=== PATIENT | male | born 1970 | race Caucasian/White ===

== ENCOUNTER 2020-11-26 10:12 | Emergency (ER) | payer OTHER ==
[~2020-11-26] VITALS: Ht 170.2 cm; Wt 83.9 kg
[~2020-11-26 10:12] MED LIST: GUAIFENESIN-CO120 ML PO; HYDROCODONE-AP1 EAC6 PO
[2020-11-26 12:44] LABS: ABSOLUTE BASOPHILS 0.1 thou/uL (0.0-0.2); ABSOLUTE EOSINOPHILS 0.4 thou/uL (0.0-0.7); ABSOLUTE LYMPHOCYTES 3.9 thou/uL (0.8-5.3); ABSOLUTE MONOCYTES 1.1 thou/uL (0.0-1.2); ABSOLUTE NEUTROPHILS 7.4 thou/uL (1.6-8.1); BASOPHILS 0.7 %; EOSINOPHILS 2.9 %; HEMATOCRIT 38.4 % (42.0-52.0); LYMPHOCYTES 30.5 %; MCH 17.7 pg (26.0-34.0); MCHC 31.1 g/dL (28.0-37.0); MCV 56.8 fL (80.0-100.0); MONOCYTES 8.3 %; MPV 8.6 fl. (7.2-11.1); NUCLEATED RBCS 0 /100WBC; PLATELET COUNT* 211 thou/uL (150-400); POLYS 57.6 %; RBC 6.76 mil/uL (4.50-6.00); RDW-CV 16.5 % (10.5-14.5); WBC 12.8 thou/uL (4.0-11.0)
[2020-11-26 12:50] LABS: CALCIUM 9.2 mg/dL (8.5-10.1); POTASSIUM 4.3 mmol/L (3.5-5.1)
[2020-11-26 12:51] LABS: INFLUENZA A ANTIGEN Negative (Negative); INFLUENZA B ANTIGEN Negative (Negative)
[2020-11-26 12:54] LABS: ALBUMIN 4.2 g/dL (3.4-5.0); TOTAL BILIRUBIN 0.9 mg/dL (<0.1-1.0); TOTAL PROTEIN 7.7 g/dL (6.4-8.2)
[2020-11-26 13:13] LABS: ANISOCYTOSIS 1+; PLATELET ESTIMATE ADEQUATE; POLYCHROMASIA 1+; TARGET CELLS 2+
[2020-11-26] MEDS ORDERED: APAP W/CODEINE1 TA2 PO (13:27)
[2020-11-26 13:51] VITALS: BP 112/77
== END 2020-11-26 13:53 | disposition home or self-care (01) ==
LOC: M.ERS 10:12
PROVIDERS: Physician Assistant
DX: M79.10 Myalgia, unspecified site (principal); D64.9 Anemia, unspecified; R79.89 Other specified abnormal findings of blood chemistry; Z20.828 Contact with and (suspected) exposure to other viral communicable diseases

== ENCOUNTER 2020-11-30 08:57 | Emergency (ER) | payer OTHER ==
[~2020-11-30] VITALS: Ht 170.2 cm; Wt 83.9 kg
[~2020-11-30 08:57] MED LIST changes: +APAP W/CODEINE1 TA2 PO
[2020-11-30 09:44] LABS: INFLUENZA A ANTIGEN Negative (Negative); INFLUENZA B ANTIGEN Negative (Negative)
[2020-11-30 09:45] LABS: ABSOLUTE BASOPHILS 0.2 thou/uL (0.0-0.2); ABSOLUTE EOSINOPHILS 0.3 thou/uL (0.0-0.7); ABSOLUTE LYMPHOCYTES 6.9 thou/uL (0.8-5.3); ABSOLUTE MONOCYTES 1.9 thou/uL (0.0-1.2); ABSOLUTE NEUTROPHILS 9.7 thou/uL (1.6-8.1); BASOPHILS 1.1 %; EOSINOPHILS 1.4 %; HEMATOCRIT 37.6 % (42.0-52.0); HEMOGLOBIN 11.8 gm/dL (14.0-18.0); LYMPHOCYTES 36.2 %; MCH 17.4 pg (26.0-34.0); MCHC 31.4 g/dL (28.0-37.0); MCV 55.4 fL (80.0-100.0); MPV 8.7 fl. (7.2-11.1); NUCLEATED RBCS 0 /100WBC; PLATELET COUNT* 222 thou/uL (150-400); POLYS 51.3 %; RBC 6.79 mil/uL (4.50-6.00); RDW-CV 16.2 % (10.5-14.5)
[2020-11-30 09:54] LABS: CALCIUM 8.9 mg/dL (8.5-10.1); CREATININE 1.1 mg/dL (0.6-1.3); POTASSIUM 3.9 mmol/L (3.5-5.1)
[2020-11-30 10:04] LABS: ALBUMIN 3.8 g/dL (3.4-5.0); TOTAL BILIRUBIN 1.2 mg/dL (<0.1-1.0); TOTAL PROTEIN 7.7 g/dL (6.4-8.2)
[2020-11-30 11:03] LABS: URINE BILIRUBIN NEGATIVE (Negative); URINE BLOOD NEGATIVE (Negative); URINE CLARITY CLEAR; URINE COLOR YELLOW; URINE GLUCOSE-RANDOM NEGATIVE (Negative); URINE KETONES 1+ (Negative); URINE LEUKOCYTES-REFLEX NEGATIVE (Negative); URINE NITRITE-REFLEX NEGATIVE (Negative); URINE PROTEIN NEGATIVE (Negative); URINE SPECIFIC GRAVITY 1.015 (1.005-1.030); URINE UROBILINOGEN 0.2 E.U./dl (0.2-1.0)
[2020-11-30] MEDS ORDERED: DOXYCYCLINE 10100 M2 PO (11:22)
[2020-11-30 11:52] VITALS: BP 116/74
== END 2020-11-30 11:53 | disposition home or self-care (01) ==
LOC: M.ERS 08:57
PROVIDERS: Emergency Medicine Emergency Medical Services
DX: R50.9 Fever, unspecified (principal); Z20.828 Contact with and (suspected) exposure to other viral communicable diseases

== ENCOUNTER 2020-12-08 10:21 | Emergency (ER) | payer OTHER ==
[~2020-12-08] VITALS: Ht 170.2 cm; Wt 81.7 kg
[~2020-12-08 10:21] MED LIST changes: +DOXYCYCLINE 10100 M2 PO
[2020-12-08 10:55] LABS: URINE BILIRUBIN NEGATIVE (Negative); URINE BLOOD NEGATIVE (Negative); URINE CLARITY CLEAR; URINE COLOR YELLOW; URINE GLUCOSE-RANDOM NEGATIVE (Negative); URINE KETONES NEGATIVE (Negative); URINE LEUKOCYTES-REFLEX NEGATIVE (Negative); URINE NITRITE-REFLEX NEGATIVE (Negative); URINE PROTEIN TRACE (Negative); URINE SPECIFIC GRAVITY 1.025 (1.005-1.030); URINE UROBILINOGEN 0.2 E.U./dl (0.2-1.0)
[2020-12-08 11:12] LABS: ABSOLUTE EOSINOPHILS 0.1 thou/uL (0.0-0.7); ABSOLUTE LYMPHOCYTES 6.1 thou/uL (0.8-5.3); ABSOLUTE NEUTROPHILS 6.5 thou/uL (1.6-8.1); BASOPHILS 0.2 %; HEMATOCRIT 35.1 % (42.0-52.0); LYMPHOCYTES 44.2 %; MCH 17.3 pg (26.0-34.0); MCHC 31.3 g/dL (28.0-37.0); MCV 55.2 fL (80.0-100.0); MONOCYTES 7.5 %; MPV 8.7 fl. (7.2-11.1); NUCLEATED RBCS 0 /100WBC; PLATELET COUNT* 455 thou/uL (150-400); POLYS 47.1 %; RBC 6.36 mil/uL (4.50-6.00); RDW-CV 16.3 % (10.5-14.5); WBC 13.8 thou/uL (4.0-11.0)
[2020-12-08 11:20] LABS: CALCIUM 8.5 mg/dL (8.5-10.1); CREATININE 0.9 mg/dL (0.6-1.3)
[2020-12-08 11:28] LABS: ALBUMIN 3.7 g/dL (3.4-5.0); TOTAL BILIRUBIN 0.7 mg/dL (<0.1-1.0); TOTAL PROTEIN 8.1 g/dL (6.4-8.2)
[2020-12-08 11:31] LABS: INFLUENZA A ANTIGEN Negative (Negative); INFLUENZA B ANTIGEN Negative (Negative)
[2020-12-08 11:47] LABS: HYPOCHROMASIA 3+; PLATELET ESTIMATE INCREASED
[2020-12-08 11:48] LABS: OVALOCYTES 1+; TARGET CELLS Occasional
[2020-12-08 11:49] LABS: ANISOCYTOSIS 2+; MICROCYTES 2+
[2020-12-08 11:50] LABS: POIKILOCYTOSIS 1+
[2020-12-08] MEDS ORDERED: IBUPROFEN 800800 M1 PO (12:10)
[2020-12-08 12:28] VITALS: BP 114/72
--- NOTE | 2020-12-08 15:04 | EKG ---
[place] [address] ELECTROCARDIOGRAM REPORT Name: MARLEE MARTÍNEZ III Room: [facility]#: [id number] Admission: 12/08/20 Attend Phys: Discharge: 12/08/20 Date of : 68 Date of Service: 12/08/20 1107 Report #: [id number] THIS REPORT FOR: //name// [facility] ED Test Date: 2020-12-08 Test Time: 11:07:36 Pat Name: MARLEE MARTÍNEZ Department: Room: Gender: Regulatory Coordinator: CCD : 1970 Requested By: Ludmila Stevenson Order Number: [id number] MD: Winston Heller Measurements Intervals [place] Rate: 86 P: 65 [place]: 171 QRS: 16 QRSD: 96 T: 28 QT: 380 QTc: 455 Interpretive Statements Sinus rhythm Abnormal R-wave progression, early transition Baseline wander in lead(s) II,aVF No previous ECG available for comparison Electronically Signed On 12-08-2020 15:04:03 [employer] by Winston Heller [email or web address] <ELECTRONICALLY SIGNED> By: Winston Heller MD, FAC 12/08/20 1504 1107 1107 Winston Heller MD, [facility] /EPI
== END 2020-12-08 12:29 | disposition home or self-care (01) ==
LOC: M.ERS 10:21
PROVIDERS: Nurse Practitioner Family
DX: B34.9 Viral infection, unspecified (principal); Z20.828 Contact with and (suspected) exposure to other viral communicable diseases; Z79.899 Other long term (current) drug therapy